=== PATIENT | female | born 1935 | race Caucasian/White ===

== ENCOUNTER 2017-01-21 09:38 | Inpatient (IN) | payer MEDICARE ==
[2017-01-20 16:02] VITALS: BMI 31.3
[2017-01-21 10:34] LABS: #Basophils 0.1 thou/uL (0.0-0.2); #Eosinphils 0.2 thou/uL (0.0-0.7); #Lymphocytes 1.8 thou/uL (1.20-3.40); #Monocytes 0.9 thou/uL (0.11-0.59); #Neutrophils 6.2 thou/uL (1.40-6.50); %Basophils 0.6 % (0.0-1.0); %Eosinophils 1.7 % (0.0-10.0); %Lymphocytes 19.8 % (21.0-51.0); %Monocytes 9.8 % (0.0-10.0); Hematocrit 49.4 % (36.0-47.0); Mean Platelet Volume 7.6 fL (7.4-10.4); Red Blood Cell (RBC) Count 5.31 mill/uL (4.20-5.40); White Blood Cell (WBC) Count 9.1 thou/uL (4.8-10.8)
[2017-01-21 10:45] LABS: Anion Gap 16 mmol/L (10-20); BUN (Urea Nitrogen) 18 mg/dL (9.8-20.1); Calc. Creatinine Clearance 55 mL/min (70-130); Calcium 9.1 mg/dL (7.8-10.44); Carbon Dioxide 24 mmol/L (23-31); Chloride 104 mmol/L (98-107); Estimated GFR-MDRD 45
[2017-01-21 10:46] LABS: PTT 28.6 SEC (22.9-36.1); Prothrombin Time 12.8 SEC (12.0-14.7)
[2017-01-21] MEDS ORDERED: Sodium Chloride 0.9% 10 ML ONE ×2 (12:38→12:47)
[2017-01-21] MEDS ORDERED: Vecuronium 10 MG VIAL ONE ×2 (12:38→14:07)
[2017-01-21] MEDS ORDERED: Fentanyl 250 MCG/5 ML VIAL ONE (12:38)
[2017-01-21] MEDS ORDERED: Diprivan 20 ML ONE ×2 (12:38→16:28)
[2017-01-21] MEDS ORDERED: Thrombin 5000 UNITS/5 ML VIAL ONE ×3 (12:47→15:23)
[2017-01-21] MEDS ORDERED: Bacitracin Zinc Ointment 30 gm TUBE ONE (12:47)
[2017-01-21] MEDS ORDERED: Propofol 200 MG/20 ML VIAL ONE ×2 (14:07)
[2017-01-21] MEDS ORDERED: Lidocaine 2% PF 10 ML AMP (For Epidural Use) ONE (14:07)
[2017-01-21] MEDS ORDERED: Ondansetron HCl/PF 4 MG/2 ML Vial ONE (14:07)
[2017-01-21] MEDS ORDERED: Dexamethasone 20 MG/5 ML VIAL ONE (14:07)
[2017-01-21] MEDS ORDERED: Glycopyrrolate 0.2 MG/ML 5 ML SYRINGE ONE (14:07)
[2017-01-21] MEDS ORDERED: PHENYLEPHRINE-NS 100 MCG/ML 10 ML SYRINGE ONE (14:07)
--- NOTE | 2017-01-21 15:04 | EKG ---
Test Reason : PEOP Blood Pressure : / mmHG Vent. Rate : 070 BPM Atrial Rate : 070 BPM P-R Int : 190 ms QRS Dur : 078 ms QT Int : 388 ms P-R-T Axes : 046 022 040 degrees QTc Int : 419 ms Normal sinus rhythm Normal ECG Confirmed by FELIPE LAZARO ([id number]) on 01/21/2017 3:03:59 PM Referred By: ROXANNE Confirmed By:FELIPE LAZARO
[2017-01-21] MEDS ORDERED: Milk Of Magnesia 30 ML UDCUP PO PRN (17:06)
[2017-01-21] MEDS ORDERED: Fleet Enema 133 ML BOT PR PRN (17:06)
[2017-01-21] MEDS ORDERED: Bisacodyl 10 MG SUPP PR PRN (17:06)
[2017-01-21] MEDS ORDERED: Promethazine HCl 25 MG/ML VIAL IM PRN ×2 (17:06→17:14)
[2017-01-21] MEDS ORDERED: traMADol HCl 50 MG TAB PO PRN (17:06)
[2017-01-21] MEDS ORDERED: HYDROcodone/Acetaminophen 7.5/325 mg Tablet PO PRN (17:06)
[2017-01-21] MEDS ORDERED: Morphine Sulfate 2 MG/ML SYRINGE SLOW IVP PRN ×2 (17:06→17:14)
[2017-01-21] MEDS ORDERED: Acetaminophen 325 MG TAB PO PRN (17:06)
[2017-01-21] MEDS ORDERED: tiZANidine HCl 4 MG TAB PO PRN (17:06)
[2017-01-21] MEDS ORDERED: Promethazine HCl 25 MG/ML VIAL SLOW IVP PRN (17:14)
[2017-01-21] MEDS ORDERED: Ondansetron HCl/PF 4 MG/2 ML Vial IVP PRN (17:14)
[2017-01-21] MEDS ORDERED: Meperidine HCl/PF 25 MG/ML VIAL SLOW IVP PRN (17:14)
[2017-01-21] MEDS ORDERED: HYDROmorphone 2 MG/ML VIAL SLOW IVP PRN (17:14)
[2017-01-21] MEDS ORDERED: Fentanyl 100 MCG/2 ML VIAL ONE ×2 (17:31→18:14)
[2017-01-21] MEDS: Sodium Chloride 0.9% 1,000 ML IV SCH (20:19)
[2017-01-21] MEDS: Acetaminophen/Codeine 30-300mg Tablet PO PRN ×2 (20:20→23:08)
--- NOTE | 2017-01-21 21:58 | OP ---
SURGEON: Alfonso Ribeiro MD CLAY ROASTER: Lester Dubon PA-C OPERATING ROOM: 12. WOUND: Type 1 wound. PREPROCEDURE DIAGNOSIS: Lumbar stenosis L4-L5 with L5-S1 synovial cyst, low back and leg pain. POSTPROCEDURE DIAGNOSES: Lumbar stenosis L4-L5 with L5-S1 synovial cyst, low back and leg pain. PROCEDURE: 1. L4-L5 laminectomy, partial facetectomy, foraminotomies L4-L5 nerve roots. 2. L5-S1 laminectomy for excision of synovial cyst (extradural lumbosacral mass nonneoplastic). PROCEDURE: After informed consent was obtained from the patient, the patient was brought to OR 12. Proper patient pause and identification was carried out. She was placed under excellent general endotracheal anesthesia and positioned prone on the operating room table. All appropriate points were padded. We identified L4-L5 and L5-S1 dorsal spines and a linear was made over this region. This area was sterilely prepped and draped. Proper patient pause and identification was carried out. The L4, L5, and S1 incision was then made and using sharp, monopolar and blunt dissection to expose the L4, L5 and S1 dorsal spines and lamina. We then after localization film from an L4-L5 laminectomy, partial facetectomy, and foraminotomies over the L4-L5 nerve roots. We then performed an L5-S1 laminectomy for excision of the synovial cyst that was eccentric to the right side at the L5-S1 segment. Once we performed L4-L5 laminectomy and turned our attention to the L5-S1 segment and performed a laminectomy. We exposed the synovial cyst, it is quite adherent to the dura. I should note that at the L4-L5 segment there, we came upon a very small hole in the dura consistent with a pin hole area where there was a bleb of old scar in this region, perhaps from a prior epidural steroid injection region. Nevertheless, we encountered a small amount of CSF and a small suture was placed there and no further leak occurred. Very little CSF was lost. We then turned our attention to the synovial cyst and while the cyst was intimately adhered to the dura, we were able to free it without any CSF leak, following that we had excellent decompression of the L4, L5 and S1 nerve roots bilaterally and the main dural tube. Copious irrigation then occurred. Hemostasis was maximized throughout. The wound was then closed in anatomic layers following DuraSeal placement over the dural tube and we had excellent decompression and satisfactory hemostasis again. The patient following closure in the anatomic layers, emerged from anesthesia. MONI
[2017-01-21] MEDS: Mag-Al 1200 mg/1200 mg/30 ML UDCUP PO PRN (23:03)
[2017-01-22] MEDS: Acetaminophen/Codeine 30-300mg Tablet PO PRN ×4 (02:01→14:36)
[2017-01-22] MEDS: Mag-Al 1200 mg/1200 mg/30 ML UDCUP PO PRN ×2 (04:21→13:09)
[2017-01-22] MEDS: Sodium Chloride 0.9% 1,000 ML IV SCH (04:50)
[2017-01-22] MEDS ORDERED: Lisinopril 5 MG TAB PO SCH (09:00)
[2017-01-22] MEDS ORDERED: Calcium Carbonate 600 MG TAB PO SCH (09:00)
[2017-01-22] MEDS ORDERED: Lactinex Tablet PO SCH (09:00)
--- NOTE | 2017-01-22 09:21 | PRG ---
DATE OF SERVICE: 01/22/2017 Ms. Rao is postoperative day 1 from L4-S1 decompression, with L5-S1 synovial cystectomy. She stat es she has no leg pain. She has good strength. She has good neurological exam and is mobilizing al ready. Her wound is dry. We identified a small pinhole in the dura at the L4-L5 segment. It appea red to be an area of old trauma or scarring. Nevertheless, there is no worrisome CSF leak and the p atient has no symptoms of such today. She is already mobilizing We will arrange appropriate dispos ition for her.
[2017-01-22 16:52] VITALS: BP 123/77; TEMP 97.8
== END 2017-01-22 17:15 | disposition home health service (06) | DRG 502 ==
LOC: SURG B 09:38 → SURG A 18:17
PROVIDERS: ADMIT Surgery; ATTEND Surgery
PROC: 01NB0ZZ Release Lumbar Nerve, Open Approach (ICD-10-PCS; principal; 2017-01-21)
PROC: 0MBD0ZZ Excision of Lower Spine Bursa and Ligament, Open Approach (ICD-10-PCS; 2017-01-21)
PROC: 00Q20ZZ Repair Dura Mater, Open Approach (ICD-10-PCS; 2017-01-21)
DX: M54.16 Radiculopathy, lumbar region (principal); M71.38 Other bursal cyst, other site; M48.061 Spinal stenosis, lumbar region without neurogenic claudication
CPT/HCPCS: 36415; 76001; 80048; 85025; 85610; 85730; 93005; 93010; A4216; J1100; J2001; J2405; J2704; J3010; J3370; J3490

== ENCOUNTER 2022-12-18 13:13 | Emergency (ER) | payer MEDICARE ==
[2022-12-18] MEDS ORDERED: Morphine 4 MG/ML VIAL ONE (18:28)
[2022-12-18] MEDS ORDERED: Ondansetron PF 4 MG/2 ML Vial ONE (18:28)
== END 2022-12-18 18:41 ==
LOC: ERS 13:13
DX: S32.592A Other specified fracture of left pubis, initial encounter for closed fracture (principal); K21.9 Gastro-esophageal reflux disease without esophagitis; E78.5 Hyperlipidemia, unspecified; I10 Essential (primary) hypertension; Z79.899 Other long term (current) drug therapy; X50.1XXA Overexertion from prolonged static or awkward postures, initial encounter
CPT/HCPCS: 72192; 96374; 96375; J2270; J2405

== ENCOUNTER 2023-01-29 12:28 | Outpatient (CLI) | payer MEDICARE | END 2023-01-29 12:29 | disposition home or self-care (01) | LOC: ULT 12:28 | PROVIDERS: ATTEND Internal Medicine | DX: I83.12 Varicose veins of left lower extremity with inflammation (principal) ==

== ENCOUNTER 2023-02-25 15:28 | Outpatient (CLI) | payer MEDICARE | END 2023-02-25 15:29 | disposition home or self-care (01) | LOC: BICULT 15:28 | PROVIDERS: ATTEND Internal Medicine | DX: N94.9 Unspecified condition associated with female genital organs and menstrual cycle (principal); Z90.710 Acquired absence of both cervix and uterus | CPT/HCPCS: 76856; 93976 ==